=== PATIENT | female | born 1995 | race Caucasian/White ===

== ENCOUNTER 2017-03-24 08:44 | Emergency (ER) | payer BC ==
[2017-03-24 08:55] VITALS: RESP 16
[2017-03-24] MEDS ORDERED: SODIUM CHLORIDE 0.9% 1,000 ML IV STA (09:06)
--- NOTE | 2017-03-24 09:08 | ED ---
General Adult HPI - General Chief complaint: Urogenital Stated complaint: Urogenital Time Seen by Provider: 03/24/17 09:00 Source: patient, RN notes reviewed Mode of arrival: ambulatory Limitations: no limitations - History of Present Illness Initial comments: Patient 21-year-old female who presents emergency room today with a chief complaint of left lower quadrant pain off and on over the last month. Does not that she had an IUD placed on January 28 in [place] where she goes to school. She states she noticed spotting on and off for the first month. States she's been having some pain on and off in the left lower quadrant. States that yesterday was sharper pain. States there was no injury. She was just sitting and relaxing. She does admit that the pain is not as severe today. Describes it as sharp. Denies any radiation. Denies any other complaints associated symptoms. Denies any vaginal bleeding or discharge. Denies any concern for STDs. Patient denies any recent fever, chills, shortness of breath, chest pain, back pain, nausea or vomiting, numbness or tingling, dysuria or hematuria, headaches or visual changes, or any other complaints. - Related Data Home Medications Medication Instructions Recorded Confirmed Acetaminophen Tab [Tylenol Tab] 650 mg PO Q6H PRN 03/24/17 03/24/17 Previous Rx's Medication Instructions Recorded Ibuprofen [Motrin] 600 mg PO Q6HR PRN #40 day 03/24/17 Allergies Allergy/AdvReac Type Severity Reaction Status Date / Time latex Allergy Rash/Hives Verified 03/24/17 09:15 Review of Systems ROS Statement: Those systems with pertinent positive or pertinent negative responses have been documented in the HPI. ROS Other: All systems not noted in ROS Statement are negative. Past Medical History Past Medical History: No Reported History History of Any Multi-Drug Resistant Organisms: None Reported Past Surgical History: No Surgical Hx Reported Past Psychological History: No Psychological Hx Reported Smoking Status: Never smoker Past Alcohol Use History: Occasional Past Drug Use History: None Reported General Exam - General Exam Comments Initial Comments: General: The patient is awake and alert, in no distress, and does not appear acutely ill. Eye: Pupils are equal, round and reactive to light, extra-ocular movements are intact. No nystagmus. There is normal conjunctiva bilaterally. No signs of icterus. Ears, nose, mouth and throat: There are moist mucous membranes and no oral lesions. Neck: The neck is supple, there is no tenderness or JVD. Cardiovascular: Tachycardic. No murmur, rub or gallop is appreciated. Respiratory: Lungs are clear to auscultation, respirations are non-labored, breath sounds are equal. No wheezes, stridor, rales, or rhonchi. Gastrointestinal: Soft, non-distended, non-tender abdomen without masses or organomegaly noted. There is no rebound or guarding present. No CVA tenderness. Bowel sounds are unremarkable. Musculoskeletal: Normal ROM, no tenderness. Strength 5/5. Sensation intact. Pulses equal bilaterally 2+. Neurological: A&O x 3. CN II-XII intact, There are no obvious motor or sensory deficits. Coordination appears grossly intact. Speech is normal. Skin: Skin is warm and dry and no rashes or lesions are noted. Psychiatric: Cooperative, appropriate mood & affect, normal judgment. Limitations: no limitations Course Vital Signs 03/24/17 08:52 Temperature 98.1 F Pulse Rate 124 H Respiratory 16 Rate Blood Pressure 132/89 O2 Sat by Pulse 100 Oximetry Medical Decision Making - Medical Decision Making Case discussed in detail with attending physician Dr. Mohr. Patient's ultrasound reviewed no evidence of ovarian torsion. Does show evidence of ovarian cyst on the left. IUD in place. Patient's labs reviewed unremarkable. Will be discharged home. Offered pain medication in the emergency room she has declined. Advised Tylenol Motrin for pain and followed up with her BRICK EXTRUDER OPERATOR. Advised return if symptoms increase or worsen or for any other concerns. - Lab Data Result diagrams: 03/24/17 09:16 03/24/17 09:16 Lab Results 03/24/17 03/24/17 03/24/17 Range/Units 09:16 09:16 09:16 WBC 8.4 (4.0-11.0) k/uL RBC 4.63 (3.80-5.40) m/uL Hgb 14.6 (11.4-16.0) gm/dL Hct 42.6 (34.0-46.0) % MCV 92.0 (80.0-100.0) fL MCH 31.4 (25.0-35.0) pg MCHC 34.1 (31.0-37.0) g/dL RDW 12.3 (11.5-15.5) % Plt Count 371 (150-450) k/uL Neutrophils % 78 % Lymphocytes % 17 % Monocytes % 3 % Eosinophils % 1 % Basophils % 1 % Neutrophils # 6.5 (1.3-7.7) k/uL Lymphocytes # 1.5 (1.0-4.8) k/uL Monocytes # 0.2 (0-1.0) k/uL Eosinophils # 0.1 (0-0.7) k/uL Basophils # 0.0 (0-0.2) k/uL Sodium 139 (137-145) mmol/L Potassium 4.1 (3.5-5.1) mmol/L Chloride 103 (98-107) mmol/L Carbon Dioxide 22 (22-30) mmol/L Anion Gap 14 mmol/L BUN 7 (7-17) mg/dL Creatinine 0.52 (0.52-1.04) mg/dL Est GFR (MDRD) Af Amer >60 (>60 ml/min/1.73 sqM) Est GFR (MDRD) Non-Af >60 (>60 ml/min/1.73 sqM) Glucose 111 H (74-99) mg/dL Calcium 10.3 H (8.4-10.2) mg/dL Total Bilirubin 1.0 (0.2-1.3) mg/dL AST 26 (14-36) U/L ALT 30 (9-52) U/L Alkaline Phosphatase 97 (38-126) U/L Total Protein 9.0 H (6.3-8.2) g/dL Albumin 5.2 H (3.5-5.0) g/dL Lipase 56 (23-300) U/L Urine Color Urine Appearance (Clear) Urine pH (5.0-8.0) Ur Specific [place] (1.001-1.035) Urine Protein (Negative) Urine Glucose (UA) (Negative) Urine Ketones (Negative) Urine Blood (Negative) Urine Nitrite (Negative) Urine Bilirubin (Negative) Urine Urobilinogen (<2.0) mg/dL Ur Leukocyte Esterase (Negative) Urine RBC (0-5) /hpf Urine WBC (0-5) /hpf Ur Squamous Epith Cells (0-4) /hpf Urine Mucus (None) /hpf Urine HCG, Qual Not Detected (Not Detectd) 03/24/17 Range/Units 09:16 WBC (4.0-11.0) k/uL RBC (3.80-5.40) m/uL Hgb (11.4-16.0) gm/dL Hct (34.0-46.0) % MCV (80.0-100.0) fL MCH (25.0-35.0) pg MCHC (31.0-37.0) g/dL RDW (11.5-15.5) % Plt Count (150-450) k/uL Neutrophils % % Lymphocytes % % Monocytes % % Eosinophils % % Basophils % % Neutrophils # (1.3-7.7) k/uL Lymphocytes # (1.0-4.8) k/uL Monocytes # (0-1.0) k/uL Eosinophils # (0-0.7) k/uL Basophils # (0-0.2) k/uL Sodium (137-145) mmol/L Potassium (3.5-5.1) mmol/L Chloride (98-107) mmol/L Carbon Dioxide (22-30) mmol/L Anion Gap mmol/L BUN (7-17) mg/dL Creatinine (0.52-1.04) mg/dL Est GFR (MDRD) Af Amer (>60 ml/min/1.73 sqM) Est GFR (MDRD) Non-Af (>60 ml/min/1.73 sqM) Glucose (74-99) mg/dL Calcium (8.4-10.2) mg/dL Total Bilirubin (0.2-1.3) mg/dL AST (14-36) U/L ALT (9-52) U/L Alkaline Phosphatase (38-126) U/L Total Protein (6.3-8.2) g/dL Albumin (3.5-5.0) g/dL Lipase (23-300) U/L Urine Color Colorless Urine Appearance Cloudy H (Clear) Urine pH 5.5 (5.0-8.0) Ur Specific [place] 1.005 (1.001-1.035) Urine Protein Negative (Negative) Urine Glucose (UA) Negative (Negative) Urine Ketones 1+ H (Negative) Urine Blood Small H (Negative) Urine Nitrite Negative (Negative) Urine Bilirubin Negative (Negative) Urine Urobilinogen <2.0 (<2.0) mg/dL Ur Leukocyte Esterase Negative (Negative) Urine RBC 1 (0-5) /hpf Urine WBC <1 (0-5) /hpf Ur Squamous Epith Cells 3 (0-4) /hpf Urine Mucus Rare H (None) /hpf Urine HCG, Qual (Not Detectd) Disposition Clinical Impression: Ovarian cyst Disposition: HOME SELF-CARE Condition: Good Instructions: Ovarian Cyst (ED) Additional Instructions: Please use medication as discussed. Please follow-up with BRICK EXTRUDER OPERATOR/family doctor in the next 2 days of symptoms have not improved. Please return to emergency room if the symptoms increase or worsen or for any other concerns. Prescriptions: Ibuprofen [Motrin] 600 mg PO Q6HR PRN #40 day PRN Reason: Pain Referrals: Macario Hayes MD [Primary Care Provider] - 1-2 days Time of Disposition: 11:08
[2017-03-24 09:44] LABS: Basophils % (A) 1 %; CH 32.9; CHCM 35.9; Eosinophils # (A) 0.1 k/uL (0-0.7); Eosinophils % (A) 1 %; HCT 42.6 % (34.0-46.0); HDW 2.57; HGB 14.6 gm/dL (11.4-16.0); Luc # (Auto) 0.09; Luc % (Auto) 1; Lymphocytes # (A) 1.5 k/uL (1.0-4.8); Lymphocytes % (A) 17 %; MCH 31.4 pg (25.0-35.0); MCHC 34.1 g/dL (31.0-37.0); Mean Platelet Volume 6.5; Monocytes # (A) 0.2 k/uL (0-1.0); Monocytes % (A) 3 %; Neutrophils # (A) 6.5 k/uL (1.3-7.7); Neutrophils % (A) 78 %; RBC 4.63 m/uL (3.80-5.40); RDW 12.3 % (11.5-15.5); WBC 8.4 k/uL (4.0-11.0); WBC (Perox) 8.89
[2017-03-24 09:45] LABS: Appearance,Urine Cloudy (Clear); Bilirubin,Urine Negative (Negative); Glucose,Urine (UA) Negative (Negative); Ketones,Urine 1+ (Negative); Leukocyte Esterase,Urine Negative (Negative); Mucus,Urine Rare /hpf; Nitrite,Urine Negative (Negative); PH, Urine 5.5 (5.0-8.0); Particle Count 2332; Protein,Urine Negative (Negative); RBC,Urine 1 /hpf (0-5); Specific Gravity,Urine 1.005 (1.001-1.035); Squamous Epithelial Cell,Urine 3 /hpf (0-4); UA Billing (MACRO vs. MICRO) MICRO; Urobilinogen,Urine <2.0 mg/dL (<2.0); WBC,Urine <1 /hpf (0-5)
[2017-03-24 09:51] LABS: ALT 30 U/L (9-52); AST 26 U/L (14-36); Alkaline Phosphatase 97 U/L (38-126); Anion Gap 14 mmol/L; Blood Urea Nitrogen 7 mg/dL (7-17); Calcium 10.3 mg/dL (8.4-10.2); Carbon Dioxide 22 mmol/L (22-30); Chloride 103 mmol/L (98-107); Glucose 111 mg/dL (74-99); Non-African American GFR(MDRD) >60 (>60 ml/min/1.73 sqM); Potassium 4.1 mmol/L (3.5-5.1); Sodium 139 mmol/L (137-145)
--- NOTE | 2017-03-24 10:43 | US ---
EXAMINATION TYPE: US transvaginal DATE OF EXAM: 03/24/2017 COMPARISON: US 2010 CLINICAL HISTORY: LLQ pain. Bloating x 1 week, breast tenderness, left pelvic pain x 2 days, history of ovarian cysts, patient has IUD, 0 TECHNIQUE: Transvaginal (TV) only ER patient Date of LMP: December 2016 EXAM MEASUREMENTS: Uterus: 6.3 x 3.1 x 4.6 cm Endometrial Stripe: 0.4 cm Right Ovary: 3.7 x 2.1 x 1.7 cm Left Ovary: 6.2 x 4.8 x 5.8 cm 1. Uterus: anteverted, wnl 2. Endometrium: wnl, IUD appears in the endometrial canal. 3. Right Ovary: wnl 4. Left Ovary: 5.7 x 4.2 x 5.2cm complex cyst Spectral, color and waveform doppler imaging shows good arterial and venous flow within the ovaries ; there is no evidence for ovarian torsion. 5. Bilateral Adnexa: wnl 6. Posterior cul-de-sac: wnl IMPRESSION: 1. IUD within the endometrial canal. 2. Large complex cyst left ovary. Follow-up is recommended.
[2017-03-24 11:24] VITALS: BP 116/71; PULSE 87; TEMP 98.2
== END 2017-03-24 11:19 | disposition home or self-care (01) ==
LOC: EC 08:44
DX: N83.202 Unspecified ovarian cyst, left side (principal); Z91.040 Latex allergy status; Z97.5 Presence of (intrauterine) contraceptive device
CPT/HCPCS: 36415; 76830; 80053; 81001; 81025; 83690; 85025; 93975; 96360; 99284

== ENCOUNTER 2021-01-19 18:56 | Emergency (ER) | payer BC ==
[2021-01-19] MEDS ORDERED: SODIUM CHLORIDE 0.9% 1,000 ML IV STA (20:59)
--- NOTE | 2021-01-19 21:03 | ED ---
General Adult HPI - General Chief complaint: Chest Pain Stated complaint: chest pain Time Seen by Provider: 01/19/21 20:49 Source: patient, RN notes reviewed, old records reviewed Mode of arrival: ambulatory - History of Present Illness Initial comments: Well-appearing 25-year-old female presents to the emergency room, alert and oriented 4, with complaints of chest pain substernal that radiates into her back. Patient states that she's had this pain off and on for one week. She does have a history of POTS and sees Dr. Boyd. She states the pain is 2 out of 10 at this time. She denies any nausea vomiting diarrhea or fevers. She has had regular bowel movements. She is a nonsmoker. She states that she does have anxiety associated with the chest pain. She did recently see Dr. Boyd in September. She states that she does have dizziness with position changes inter mittently as well. She is currently on her menses. -: week(s) (1) Location: chest Radiation: back Severity scale (1-10): 2 Quality: sharp Consistency: intermittent Improves with: none Worsens with: none Associated Symptoms: denies other symptoms Treatments Prior to Arrival: none - Related Data Home Medications Medication Instructions Recorded Confirmed Ascorbic Acid [Vitamin C] 500 mg PO DAILY 01/19/21 01/19/21 Baclofen 10 mg PO HS 01/19/21 01/19/21 Cholecalciferol [Vitamin D3 (25 25 mcg PO DAILY 01/19/21 01/19/21 Mcg = 1000 Iu)] Cranberry Fruit Extract [Cranberry] 500 mg PO DAILY 01/19/21 01/19/21 L.acidoph,Paracasei, B.lactis 1 cap PO DAILY 01/19/21 01/19/21 [Probiotic] Levonorgestrel [Kyleena (IUD)] 1 implant VAGINAL [id number] 01/19/21 01/19/21 Propranolol HCl [Propranolol HCl 60 mg PO DAILY 01/19/21 01/19/21 ER] Allergies Allergy/AdvReac Type Severity Reaction Status Date / Time latex Allergy Rash/Hives Verified 01/19/21 22:22 Review of Systems ROS Statement: Those systems with pertinent positive or pertinent negative responses have been documented in the HPI. ROS Other: All systems not noted in ROS Statement are negative. Past Medical History Past Medical History: No Reported History Additional Past Medical History / Comment(s): POTS History of Any Multi-Drug Resistant Organisms: None Reported Past Surgical History: No Surgical Hx Reported Past Psychological History: No Psychological Hx Reported Smoking Status: Never smoker Past Alcohol Use History: Occasional Past Drug Use History: None Reported General Exam General appearance: alert, in no apparent distress Head exam: Present: atraumatic, normocephalic, normal inspection Eye exam: Present: normal appearance, EOMI. Absent: scleral icterus, conjunctival injection, periorbital swelling ENT exam: Present: normal exam, normal oropharynx, mucous membranes moist Neck exam: Present: normal inspection, full ROM. Absent: tenderness, meningismus, lymphadenopathy, thyromegaly Respiratory exam: Present: normal lung sounds bilaterally. Absent: respiratory distress, wheezes, rales, rhonchi, stridor, chest wall tenderness, accessory muscle use, decreased breath sounds Cardiovascular Exam: Present: regular rate, normal rhythm, normal heart sounds. Absent: systolic murmur, diastolic murmur, rubs, gallop, clicks GI/Abdominal exam: Present: soft, normal bowel sounds. Absent: distended, tenderness, guarding, rebound, rigid Extremities exam: Present: normal inspection, full ROM, normal capillary refill. Absent: tenderness, pedal edema, joint swelling, calf tenderness Back exam: Present: normal inspection, full ROM. Absent: tenderness, CVA tenderness (R), CVA tenderness (L), rash noted Neurological exam: Present: alert, oriented X3, normal gait Psychiatric exam: Present: normal affect, normal mood, anxious Skin exam: Present: warm, dry, intact, normal color. Absent: rash Course Vital Signs 01/19/21 01/19/21 19:50 22:41 Temperature 97.9 F 98.1 F Pulse Rate 65 71 Respiratory 19 18 Rate Blood Pressure 113/78 117/81 O2 Sat by Pulse 98 99 Oximetry EKG Findings - EKG Results: EKG: sinus rhythm (Ventricular rate 66, RI interval 0.134, QRS 0.82, QTC 0.419) Medical Decision Making - Medical Decision Making 24-year-old well-appearing female presents to the emergency room with complaints of chest pain for one week on and off. She does have a history of anxiety. She also has history of POTS. She states that she did call her director veterinary Dr. Lorenzo and was unable to get in. She did go to urgent care first and they told her her x-ray and EKG looked normal but needed blood so she came to the emergency room. Her labs are unremarkable. Troponin is negative at 0.012 and sinus rhythm on EKG with no ectopy. Patient denies any dizziness and is feeling better after IV fluids. She denies any dysuria or fevers. Lungs are clear to auscultation oxygen saturation is 98% Her d-dimer is negative. She has an IUD in place. Chest x-ray is negative for any acute cardiopulmonary process. Case discussed with Dr. Haskisn. She'll be discharged home to follow up with her primary care doctor and Dr. Lorenzo as needed. Patient is agreeable to this [facility] of care. - Lab Data Result diagrams: 01/19/21 21:28 01/19/21 21:28 Lab Results 01/19/21 01/19/21 01/19/21 Range/Units 21:28 21:28 21:28 WBC 10.3 (3.8-10.6) k/uL RBC 4.48 (3.80-5.40) m/uL Hgb 14.6 (11.4-16.0) gm/dL Hct 42.9 (34.0-46.0) % MCV 95.9 (80.0-100.0) fL MCH 32.7 (25.0-35.0) pg MCHC 34.0 (31.0-37.0) g/dL RDW 11.5 (11.5-15.5) % Plt Count 392 (150-450) k/uL MPV 7.2 Neutrophils % 76 % Lymphocytes % 18 % Monocytes % 2 % Eosinophils % 2 % Basophils % 0 % Neutrophils # 7.8 H (1.3-7.7) k/uL Lymphocytes # 1.9 (1.0-4.8) k/uL Monocytes # 0.3 (0-1.0) k/uL Eosinophils # 0.3 (0-0.7) k/uL Basophils # 0.0 (0-0.2) k/uL D-Dimer (<0.60) mg/L FEU Sodium 138 (137-145) mmol/L Potassium 4.1 (3.5-5.1) mmol/L Chloride 105 (98-107) mmol/L Carbon Dioxide 21 L (22-30) mmol/L Anion Gap 12 mmol/L BUN 10 (7-17) mg/dL Creatinine 0.54 (0.52-1.04) mg/dL Est GFR (CKD-EPI)AfAm >90 (>60 ml/min/1.73 sqM) Est GFR (CKD-EPI)NonAf >90 (>60 ml/min/1.73 sqM) Glucose 93 (74-99) mg/dL Calcium 9.7 (8.4-10.2) mg/dL Magnesium 2.3 (1.6-2.3) mg/dL Total Bilirubin 0.6 (0.2-1.3) mg/dL AST 23 (14-36) U/L ALT 11 (4-34) U/L Alkaline Phosphatase 90 (38-126) U/L Troponin I <0.012 (0.000-0.034) ng/mL Total Protein 8.3 H (6.3-8.2) g/dL Albumin 4.8 (3.5-5.0) g/dL Amylase 83 (30-110) U/L Lipase 43 (23-300) U/L Urine Color Urine Appearance (Clear) Urine pH (5.0-8.0) Ur Specific [place] (1.001-1.035) Urine Protein (Negative) Urine Glucose (UA) (Negative) Urine Ketones (Negative) Urine Blood (Negative) Urine Nitrite (Negative) Urine Bilirubin (Negative) Urine Urobilinogen (<2.0) mg/dL Ur Leukocyte Esterase (Negative) Urine RBC (0-5) /hpf Urine WBC (0-5) /hpf Ur Squamous Epith Cells (0-4) /hpf Urine Bacteria (None) /hpf Urine Mucus (None) /hpf 01/19/21 01/19/21 Range/Units 21:28 22:11 WBC (3.8-10.6) k/uL RBC (3.80-5.40) m/uL Hgb (11.4-16.0) gm/dL Hct (34.0-46.0) % MCV (80.0-100.0) fL MCH (25.0-35.0) pg MCHC (31.0-37.0) g/dL RDW (11.5-15.5) % Plt Count (150-450) k/uL MPV Neutrophils % % Lymphocytes % % Monocytes % % Eosinophils % % Basophils % % Neutrophils # (1.3-7.7) k/uL Lymphocytes # (1.0-4.8) k/uL Monocytes # (0-1.0) k/uL Eosinophils # (0-0.7) k/uL Basophils # (0-0.2) k/uL D-Dimer 0.19 (<0.60) mg/L FEU Sodium (137-145) mmol/L Potassium (3.5-5.1) mmol/L Chloride (98-107) mmol/L Carbon Dioxide (22-30) mmol/L Anion Gap mmol/L BUN (7-17) mg/dL Creatinine (0.52-1.04) mg/dL Est GFR (CKD-EPI)AfAm (>60 ml/min/1.73 sqM) Est GFR (CKD-EPI)NonAf (>60 ml/min/1.73 sqM) Glucose (74-99) mg/dL Calcium (8.4-10.2) mg/dL Magnesium (1.6-2.3) mg/dL Total Bilirubin (0.2-1.3) mg/dL AST (14-36) U/L ALT (4-34) U/L Alkaline Phosphatase (38-126) U/L Troponin I (0.000-0.034) ng/mL Total Protein (6.3-8.2) g/dL Albumin (3.5-5.0) g/dL Amylase (30-110) U/L Lipase (23-300) U/L Urine Color Yellow Urine Appearance Cloudy H (Clear) Urine pH 6.0 (5.0-8.0) Ur Specific [place] 1.018 (1.001-1.035) Urine Protein Negative (Negative) Urine Glucose (UA) Negative (Negative) Urine Ketones 2+ H (Negative) Urine Blood Large H (Negative) Urine Nitrite Negative (Negative) Urine Bilirubin Negative (Negative) Urine Urobilinogen <2.0 (<2.0) mg/dL Ur Leukocyte Esterase Moderate H (Negative) Urine RBC 24 H (0-5) /hpf Urine WBC 13 H (0-5) /hpf Ur Squamous Epith Cells 8 H (0-4) /hpf Urine Bacteria Few H (None) /hpf Urine Mucus Moderate H (None) /hpf Disposition Clinical Impression: Chest pain Disposition: HOME SELF-CARE Condition: Good Instructions (If sedation given, give patient instructions): Chest Pain (ED) Additional Instructions: Follow-up with the primary care doctor in 1 week. Return to the emergency room with any new or worsening pain or fevers. Remember to change position slowly to avoid orthostatic hypotension or dizziness. Increase your fluid intake Is patient prescribed a controlled substance at d/c from ED?: No Referrals: Mir Enciso DO [Primary Care Provider] - 1-2 days Time of Disposition: 22:22
[2021-01-19 21:36] LABS: Basophils % (A) 0 %; Eosinophils # (A) 0.3 k/uL (0-0.7); Eosinophils % (A) 2 %; HCT 42.9 % (34.0-46.0); HGB 14.6 gm/dL (11.4-16.0); Lymphocytes # (A) 1.9 k/uL (1.0-4.8); Lymphocytes % (A) 18 %; MCH 32.7 pg (25.0-35.0); MCV 95.9 fL (80.0-100.0); Mean Platelet Volume 7.2; Monocytes # (A) 0.3 k/uL (0-1.0); Monocytes % (A) 2 %; Neutrophils # (A) 7.8 k/uL (1.3-7.7); Neutrophils % (A) 76 %; Platelet Count 392 k/uL (150-450); RBC 4.48 m/uL (3.80-5.40); RDW 11.5 % (11.5-15.5); WBC 10.3 k/uL (3.8-10.6)
[2021-01-19 21:49] LABS: ALT 11 U/L (4-34); AST 23 U/L (14-36); African American GFR (CKD) >90 (>60 ml/min/1.73 sqM); Albumin 4.8 g/dL (3.5-5.0); Alkaline Phosphatase 90 U/L (38-126); Amylase 83 U/L (30-110); Anion Gap 12 mmol/L; Blood Urea Nitrogen 10 mg/dL (7-17); Calcium 9.7 mg/dL (8.4-10.2); Carbon Dioxide 21 mmol/L (22-30); Chloride 105 mmol/L (98-107); Glucose 93 mg/dL (74-99); Lipase 43 U/L (23-300); Magnesium 2.3 mg/dL (1.6-2.3); Non-African American GFR(CKD) >90 (>60 ml/min/1.73 sqM); Potassium 4.1 mmol/L (3.5-5.1); Sodium 138 mmol/L (137-145); Total Bilirubin 0.6 mg/dL (0.2-1.3); Total Protein 8.3 g/dL (6.3-8.2)
--- NOTE | 2021-01-19 21:58 | XR ---
EXAMINATION TYPE: XR chest 2V DATE OF EXAM: 01/19/2021 COMPARISON: NONE HISTORY: Chest pain TECHNIQUE: FINDINGS: Heart and mediastinum are normal. Lungs are clear. Diaphragm is normal. Bony thorax is inta ct. Pulmonary vascularity is normal. There are chest leads. IMPRESSION: Normal chest.
[2021-01-19 22:42] VITALS: BP 117/81; PULSE 71; RESP 18; TEMP 98.1
[2021-01-19 23:00] LABS: Appearance,Urine Cloudy (Clear); Bacteria,Urine Few /hpf; Bilirubin,Urine Negative (Negative); Blood,Urine Large (Negative); Color,Urine Yellow; Glucose,Urine (UA) Negative (Negative); Ketones,Urine 2+ (Negative); Leukocyte Esterase,Urine Moderate (Negative); Mucus,Urine Moderate /hpf; Nitrite,Urine Negative (Negative); Protein,Urine Negative (Negative); RBC,Urine 24 /hpf (0-5); Specific Gravity,Urine 1.018 (1.001-1.035); Squamous Epithelial Cell,Urine 8 /hpf (0-4); Urobilinogen,Urine <2.0 mg/dL (<2.0); WBC,Urine 13 /hpf (0-5)
== END 2021-01-19 22:42 | disposition home or self-care (01) ==
LOC: EC 18:56
DX: R07.2 Precordial pain (principal); Z91.040 Latex allergy status
CPT/HCPCS: 36415; 71046; 80053; 81001; 82150; 83690; 83735; 84484; 85025; 85379; 87086; 93005; 96360; 99285

== ENCOUNTER → 2021-02-25 | Outpatient (CLI) | payer BC ==
[2021-02-25 10:31] VITALS: BP 93/62; PULSE 68; RESP 16; TEMP 97.9
--- NOTE | 2021-02-25 11:21 | P.HPOB ---
History of Present Illness H&P Date: 02/25/21 Chief Complaint: The patient is here for her routine gynecologic exam. This is a 25-year-old G0 with an LMP of 02/12/2021. The patient is here to establish with this office. It has been about 4 years since her last pelvic exam. The patient had a Kyleena not IUD placed on 01/28/2017. The patient has regular menstrual periods but are very light and spotty since having the Kyleena IUD placed. She is without gynecologic complaints. She is not interested in getting in the near future. The patient had a pelvic ultrasound on 03/24/2017 which showed a 5.7 cm complex left ovarian cyst. She states she did follow-up with a supervisor soakers, Dr. Lyudmila Chavarria in [facility]. A follow-up ultrasound was done and the ovarian cyst resolved per the patient. Review of Systems Her weight has fluctuated by about 10 pounds over the past year and she states she did gain some weight when she was started on propranolol but later lost that weight when she started working. She denies respiratory, cardiac, or GI problems. Past Medical History Additional Past Medical History / Comment(s): Postural orthostatic tachycardia syndrome. PMDD. 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 She has complet ed her HPV vaccination series. History of Any Multi-Drug Resistant Organisms: None Reported Past Surgical History: No Surgical Hx Reported Additional Past Surgical History / Comment(s): [place] teeth removed. Past Anesthesia/Blood Transfusion Reactions: No Reported Reaction Past Psychological History: No Psychological Hx Reported Smoking Status: Never smoker Past Alcohol Use History: Occasional (10 per month) Past Drug Use History: Marijuana (Daily.) Additional History: She is single and has been with her boyfriend since approximately 2014. They do not live together. 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 - Past Family History Mother Additional Family Medical History / Comment(s): Crohn's disease. Maternal grandfather had diabetes. Maternal great uncle had colon cancer. Father Family Medical History: No Reported History Additional Family Medical History / Comment(s): Paternal grandfather had heart disease. Medications and Allergies Home Medications Medication Instructions Recorded Confirmed Type Ascorbic Acid [Vitamin C] 500 mg PO DAILY 01/19/21 02/25/21 History Baclofen 10 mg PO HS 01/19/21 02/25/21 History Cholecalciferol [Vitamin D3 (25 25 mcg PO DAILY 01/19/21 02/25/21 History Mcg = 1000 Iu)] Cranberry Fruit Extract [Cranberry] 500 mg PO DAILY 01/19/21 02/25/21 History L.acidoph,Paracasei, B.lactis 1 cap PO DAILY 01/19/21 02/25/21 History [Probiotic] Levonorgestrel [Kyleena (IUD)] 1 implant VAGINAL [id number] 01/19/21 02/25/21 History Propranolol HCl [Propranolol HCl 60 mg PO DAILY 01/19/21 02/25/21 History ER] FLUoxetine HCL [PROzac] 10 mg PO DAILY 02/25/21 02/25/21 History Allergies Allergy/AdvReac Type Severity Reaction Status Date / Time latex Allergy Rash/Hives Verified 02/25/21 10:25 Exam Vital Signs Temp Pulse Resp BP Pulse Ox 02/25/21 10:11 97.9 F 68 16 93/62 96 Intake and Output 02/24/21 02/25/21 02/25/21 22:59 06:59 14:59 Other: Weight 55.338 kg Height 5 foot 1 inch, weight 122 pounds, BMI 23.1. This is a well-developed well-nourished white female who is alert and oriented times 3 in no acute distress. HEENT: Within normal limits. NECK: Supple without mass or thyromegaly. CHEST AND LUNGS: Clear to auscultation. HEART: Regular rate and rhythm. BREASTS: Are without mass or discharge. AXILLARY EXAM: Negative for adenopathy. BACK: Negative for CVA tenderness. ABDOMEN: Soft, nontender, without palpable masses. PELVIC EXAM: Normal external genitalia. Cervix and vagina appear normal. The I UD string protrudes from the cervix by about 2 cm. There is no cervical motion tenderness. There is no unusual discharge. There is no evidence of prolapse. The uterus is midposition, nongravid size and nontender. There are no palpable adnexal masses or tenderness. RECTAL EXAM: Deferred. EXTREMITIES: Nontender. IMPRESSION: 1. 25-year-old female with normal gynecologic exam.. 2. Kyleena IUD has been in place for 4 years and she is doing well with it. PLAN: 1. Pap smear cytology was performed. 2. GC and chlamydia testing will be done from the Pap smear. 3. Self breast awareness was discussed with the patient. We have also discussed symptoms associated with inflammatory breast cancer. 4. She has completed her Covid vaccination series. 5. She understands that the Kyleena IUD should be removed or replaced after 5 years use. She was instructed to call as she is approaching this next year and we can determine what she wants to do at that time. 6. She was advised to return in one year for her annual well woman exam and as needed.
== END ==
LOC: WWCWWP 10:04
PROVIDERS: ATTEND Obstetrics & Gynecology
DX: Z01.419 Encounter for gynecological examination (general) (routine) without abnormal findings (principal); Z97.5 Presence of (intrauterine) contraceptive device; Z91.040 Latex allergy status

== ENCOUNTER → 2022-10-12 | Outpatient (CLI) | payer BC ==
[2022-10-12 08:05] VITALS: BP 103/67; PULSE 69; RESP 16; TEMP 97.8
--- NOTE | 2022-10-12 08:58 | P.HPOB ---
History of Present Illness H&P Date: 10/12/22 Chief Complaint: The patient is here for her routine gynecologic exam. This is a 26-year-old G0 with an LMP of 09/24/2022. The patient presented with a Kyleena IUD in place since 01/28/2017. The patient recently realized that the IUD has been in place for longer than 5 years that it has been approved for. She is requesting its removal and would like to be started on oral contraception. She does not plan on getting in the near future. She has done well with oral contraception in the past. She is without gynecologic complaints. 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 Review of Systems The patient has lost 18 pounds over the last 2-1/2 years. She believes the weight loss has been related to the stress of her job that she recently quit. She will be starting a new job which she believes will be much less stressful. She denies respiratory, cardiac, or G.I. problems. Past Medical History Past Medical History: No Reported History Additional Past Medical History / Comment(s): Postural orthostatic tachycardia syndrome. PMDD. 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 She has completed her HPV vaccination series. History of Any Multi-Drug Resistant Organisms: None Reported Past Surgical History: No Surgical Hx Reported Additional Past Surgical History / Comment(s): [place] teeth removed. Past Anesthesia/Blood Transfusion Reactions: No Reported Reaction Additional Psychological History / Comment(s): PMDD improved with Prozac. Smoking Status: Never smoker Past Alcohol Use History: Occasional (10 per month.) Past Drug Use History: Marijuana (Daily use.) Additional Drug Use History / Comment(s): She is single and has been with her boyfriend since 2014. There is live together. 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 - Past Family History Mother Additional Family Medical History / Comment(s): Crohn's disease. Maternal grandfather had diabetes. Maternal great uncle had colon cancer. Father Family Medical History: No Reported History Additional Family Medical History / Comment(s): Paternal grandfather had heart disease. Medications and Allergies Home Medications Medication Instructions Recorded Confirmed Type Ascorbic Acid [Vitamin C] 500 mg PO DAILY 01/19/21 10/12/22 History Baclofen 15 mg PO HS 01/19/21 10/12/22 History Cholecalciferol [Vitamin D3 (25 25 mcg PO DAILY 01/19/21 10/12/22 History Mcg = 1000 Iu)] Cranberry Fruit Extract [Cranberry] 500 mg PO DAILY 01/19/21 10/12/22 History Propranolol HCl [Propranolol HCl 60 mg PO DAILY 01/19/21 10/12/22 History ER] levonorgestreL [Kyleena (IUD)] 1 implant VAGINAL [id number] 01/19/21 10/12/22 History FLUoxetine HCL [PROzac] 40 mg PO DAILY 02/25/21 10/12/22 History Allergies Allergy/AdvReac Type Severity Reaction Status Date / Time latex Allergy Rash/Hives Verified 10/12/22 08:01 Exam Vital Signs Temp Pulse Resp BP Pulse Ox 10/12/22 08:02 97.8 F 69 16 103/67 98 Intake and Output 10/11/22 10/12/22 10/12/22 22:59 06:59 14:59 Other: Weight 46.72 kg Height 5 foot 1 inch, weight 103 pounds, BMI 19.5. This is a well-developed well-nourished white female who is alert and oriented times 3 in no acute distress. HEENT: Within normal limits. NECK: Supple without mass or thyromegaly. CHEST AND LUNGS: Clear to auscultation. HEART: Regular rate and rhythm. BREASTS: Are without mass or discharge. AXILLARY EXAM: Negative for adenopathy. BACK: Negative for CVA tenderness. ABDOMEN: Soft, nontender, without palpable masses. PELVIC EXAM: Normal external genitalia. Cervix and vagina appear normal. The IUD string protruded from the cervix by about 2 cm. By the patient's request and after discussing possible risks and complications of the IUD removal, this was removed without difficulty. No blood was noted after its removal. The patient tolerated the procedure well. There is no unusual discharge. There is no evidence of prolapse. The uterus is midposition, nongravid size and nontender. There are no palpable adnexal masses or tenderness. RECTAL EXAM: Was deferred. EXTREMITIES: Nontender. IMPRESSION: 1. 26 year old female with normal gynecologic exam status post removal of her Kyleena IUD today. 2. The patient is requesting oral contraception for control. PLAN: 1. Pap smear was performed. This will be cytology only. 2. GC and Chlamydia testing was obtained from the cervix. 3. Self breast awareness was discussed with the patient. We have also discussed symptoms associated with inflammatory breast cancer. 4. We have had a long discussion regarding control pills. We've discusse d possible side effects including nausea, breast tenderness and headache. We will also discussed the increased risk for blood clots on control pills. We have discussed how to start the control pills. I have asked her to start this on the Tuesday following the onset of her next normal menstrual period. I recommended that she use a backup method, such as condoms, through the first pack of pills. She will be prescribed Tri-Sprintec one by mouth daily. I stressed the importance of trying to take them up out of the same time each day. The electronic prescription will be sent to [facility] in [place]. 5. She was advised to return in one year for her annual well woman exam.
== END ==
LOC: WWCWWP 07:52
PROVIDERS: ATTEND Obstetrics & Gynecology
DX: Z01.419 Encounter for gynecological examination (general) (routine) without abnormal findings (principal); F32.81 Premenstrual dysphoric disorder; Z91.040 Latex allergy status; Z97.5 Presence of (intrauterine) contraceptive device
CPT/HCPCS: 87491

== ENCOUNTER → 2024-04-03 | Outpatient (CLI) | payer BC ==
[2024-04-03 15:26] VITALS: BP 103/72; PULSE 67; RESP 16; TEMP 98.8
--- NOTE | 2024-04-03 16:23 | P.HPOB ---
History of Present Illness H&P Date: 04/03/24 Chief Complaint: The patient is here for her routine gynecologic exam. This is a 28-year-old G0 with an LMP of 04/03/2024. The patient had her IUD removed on 10/12/2022. She has been doing well on oral contraception. She is taking Tri-Sprintec for control. She does not plan on getting in the upcoming year. She is without gynecologic complaints and states her menstrual periods are regular and predictable. Review of Systems The patient has gained 8 pounds over the last year. She denies respiratory, cardiac, or G.I. problems. Past Medical History Past Medical History: No Reported History Additional Past Medical History / Comment(s): Postural orthostatic tachycardia syndrome. PMDD. 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 She has completed her HPV vaccination series. History of Any Multi-Drug Resistant Organisms: None Reported Past Surgical History: No Surgical Hx Reported Additional Past Surgical History / Comment(s): [place] teeth removed. Past Anesthesia/Blood Transfusion Reactions: No Reported Reaction Past Psychological History: Depression Additional Psychological History / Comment(s): PMDD improved with Prozac. Smoking Status: Never smoker Past Alcohol Use History: Occasional Past Drug Use History: Marijuana (Smokes marijuana daily and also uses edibles.) Additional History: She is single and has been with her fianc since 2014. There is live together. 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 - Past Family History Mother Family Medical History: Cancer Additional Family Medical History / Comment(s): Crohn's disease. Colon cancer. Maternal grandfather had diabetes. Maternal great uncle had colon cancer. Father Family Medical History: No Reported History Additional Family Medical History / Comment(s): Paternal grandfather had heart disease. Paternal uncle has leukemia. Medications and Allergies Home Medications Medication Instructions Recorded Confirmed Type Ascorbic Acid [Vitamin C] 500 mg PO DAILY 01/19/21 04/03/24 History Baclofen 10 mg PO HS 01/19/21 04/03/24 History Cholecalciferol [Vitamin D3 (25 25 mcg PO DAILY 01/19/21 04/03/24 History Mcg = 1000 Iu)] Cranberry Fruit Extract [Cranberry] 500 mg PO DAILY 01/19/21 04/03/24 History Propranolol HCl [Propranolol HCl 60 mg PO DAILY 01/19/21 04/03/24 History ER] FLUoxetine HCL [PROzac] 40 mg PO DAILY 02/25/21 04/03/24 History norgestimate-ethinyl estradioL 1 each PO DAILY #84 tablet 10/12/22 04/03/24 Rx [Tri-Sprintec Tablet] Allergies Allergy/AdvReac Type Severity Reaction Status Date / Time latex Allergy Rash/Hives Verified 04/03/24 15:23 Exam Vital Signs Temp Pulse Resp BP Pulse Ox 04/03/24 15:24 98.8 F 67 16 103/72 97 Intake and Output 04/03/24 04/03/24 04/03/24 06:59 14:59 22:59 Other: Weight 50.349 kg Height 5 feet 2 inches, weight 111 pounds, BMI 20.3. This is a well-developed well-nourished white female who is alert and oriented times 3 in no acute distress. HEENT: Within normal limits. NECK: Supple without mass or thyromegaly. CHEST AND LUNGS: Clear to auscultation. HEART: Regular rate and rhythm. BREASTS: Are without mass or discharge. AXILLARY EXAM: Negative for adenopathy. BACK: Negative for CVA tenderness. ABDOMEN: Soft, nontender, without palpable masses. PELVIC EXAM: Normal external genitalia. Cervix and vagina appear normal. There is a small amount of menstrual blood in the vagina. There is no unusual discharge. There is no evidence of prolapse. The uterus is midposition, nongravid size and nontender. There are no palpable adnexal masses or tenderness. RECTAL EXAM: Deferred. EXTREMITIES: Nontender. IMPRESSION: 1. 28-year-old female doing well on oral contraception, with normal gynecologic exam. PLAN: 1. Pap smear was deferred since she had a negative Pap smear on 10/13/2022. 2. Self breast awareness was discussed with the patient. We have also discussed symptoms associated with inflammatory breast cancer. 3. Osteoporosis prevention was discussed. I have stressed the importance of adequate calcium, vitamin D and regular exercise. Recommended amounts of calcium and vitamin D were also discussed. 4. The prescription for Tri-Sprintec will be sent to [facility] in [place]. This will be for the upcoming year. If she ever decides to discontinue the control pills to try to get , I have recommended that she take a daily multivitamin with folic acid. 5. She was advised to return in one year for her annual well woman exam.
== END ==
LOC: WWCWWP 15:05
PROVIDERS: ATTEND Obstetrics & Gynecology
DX: Z01.419 Encounter for gynecological examination (general) (routine) without abnormal findings (principal); Z91.040 Latex allergy status